=== PATIENT | male | born 1985 | race Two or more races ===

== ENCOUNTER 2018-09-22 18:22 | Emergency (ER) | payer OTHER ==
[~2018-09-22] VITALS: Ht 180.3 cm; Wt 68.0 kg
[2018-09-22] MEDS ORDERED: Bacitracin Oint UD TOPIC ONE (18:45)
[2018-09-22] MEDS ORDERED: Norco 5mg/325mg tab ORAL ONE (18:45)
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
[2018-09-22 19:13] VITALS: BP 145/87
[2018-09-22] MEDS ORDERED: BACITRACIN-P28.35 GM TP (19:51)
[2018-09-22] MEDS ORDERED: IBUPROFEN600 MG ORAL (19:51)
[2018-09-22 20:10] VITALS: BP 145/87
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
== END 2018-09-22 20:10 | disposition home or self-care (01) ==
LOC: EDBD 18:22 → EMR 18:52
DX: S50.11XA Contusion of right forearm, initial encounter (principal); V13.4XXA Pedal cycle driver injured in collision with car, pick-up truck or van in traffic accident, initial encounter; Y93.55 Activity, bike riding; Y92.481 Parking lot as the place of occurrence of the external cause
CPT/HCPCS: 29125; 99283